=== PATIENT | female | born 1975 | race Caucasian/White ===

== ENCOUNTER 2019-02-16 10:45 | Day surgery (SDC) | payer OTHER, SELFPAY ==
[2019-02-16] VITALS (7 sets, daily range): BP systolic 96–117; BP diastolic 57–76; PULSE 51–75; RESP 14–16; TEMP 36.1–36.6; O2SAT 98–100; BMI 25.0
[2019-02-16] MEDS: Lactated Ringers 1,000 ML 40 ML IV ×2 (07:00→11:47)
[2019-02-16] MEDS: dexAMETHasone 10 MG/ML Vial 8 MG IV (07:00)
[2019-02-16] MEDS: Scopolamine 1mg/72hr Patch 1 PATCH TRANSDERM. (07:00)
[2019-02-16 11:14] LABS: Hematocrit 42.1 % (37-47); Hemoglobin 13.8 g/dL (12.0-15.0); Mean Corp Hgb Conc 32.8 g/dL (32-36); Mean Corpuscular Hgb 31.2 pg (27.0-32.0); Mean Platelet Vol. 8.9 fl (6.2-12.0); Platelet Count 266 K/mm3 (150-450); RBC Distribution Width CV 12.6 % (11.6-14.6); RBC Distribution Width SD 43.5 fl (35.1-43.9); Red Blood Count 4.43 M/mm3 (4.2-5.4); White Blood Count 4.7 K/mm3 (4.4-11.0)
[2019-02-16] MEDS: Celecoxib 200 MG Capsule 400 MG PO (11:30)
[2019-02-16] MEDS: Gabapentin 600 MG Tablet PO (11:30)
[2019-02-16] MEDS: Enoxaparin 40 MG/0.4 ML Syringe SC (11:31)
[2019-02-16] MEDS: Acetaminophen 500 MG Tablet 1000 MG PO ×2 (11:31→17:56)
[2019-02-16] MEDS: Phenazopyridine 95 MG Tablet 190 MG PO (11:31)
[2019-02-16 11:34] LABS: Internal QC Validated? YES +Cl - CLEAR BKGD; Pregnancy, Urine Negative Negative
[2019-02-16] MEDS: Magnesium Sulfate 4gm/100mL 4 GM/100 ML IV.SOLN. IV (11:48)
--- NOTE | 2019-02-16 12:15 | HYST_PTH ---
PATIENT: ROSHNI GUEVARA [place] [facility] [id number] AGE/SX: 43/F ROOM: RE02/16/[address]: Dr. Mimi Cho MD : 1975 BED: DIS: 02/16/2019 SPEC #: [id number] RECD: 02/16/19 16:20 STATUS: ALVIN GHAZAL #: [id number] BERT: 02/16/19 12:[address]: Mimi Cho DEPT: SURGICAL PATHOLOGY RECD BY: Deven Villanueva ENTERED: 02/17/19 09:40 SP TYPE: HYSTERECT OTHR DR: Dr. Clarissa Bledsoe MD Tissues: Uterus, NOS Procedures: Surgery Specimen Level V HEADER OPERATION: ERAS, hysterectomy, TLH, bilateral salpingectomy PRE-OP DIAGNOSIS: Post endometrial ablation pain, adenomyosis, uterine fibroid TISSUE SUBMITTED: Uterus, bilateral fallopian tubes MICROSCOPIC DIAGNOSIS Uterus, hysterectomy: Cervix - Nabothian cyst and mild chronic inflammation. Endometrium - transitional endometrium with focal stromal breakdown. Myometrium - focal adenomyosis. Right fallopian tube - hydrosalpinx. Left fallopian tube - hemosalpinx and endometriosis. AM:sofi 02/20/19 MICROSCOPIC DESCRIPTION Slides are reviewed. GROSS DESCRIPTION Received in fixative is one container labeled with the patient's name and designated uterus. The specimen consists of a uterus with attached cervix, attached right fallopian tube and fragments of detached fallopian tube. The uterus with the cervix measures 9 x 6 x 5.5 cm and weighs 92 gm. The ectocervix is grossly unremarkable and oval in contour. The endocervical canal measures 3 cm in length and is grossly unremarkable. The elongated endometrial cavity measures 3 cm in length x 1.5 cm in average diameter. The myometrium measures 2 cm in average thickness and is free of mass lesions. The right fallopian tube measures 6 cm in length and 1 cm in average diameter and is grossly consistent with hydrosalpinx. A distinct fimbriated end is not attached. Present free in the container are fragments of what appear to be left fallopian tube ranging in size from 1.5 cm to 5 cm. Rotary Screen Printing Machine Operator sections are submitted in 8 cassettes as follows: 1 - anterior cervix, 2 - posterior cervix, 3 & 4 - anterior uterine wall, 5 & 6 - posterior uterine wall, 7 - right fallopian tube, 8 - fragments of fallopian tubes free in container./ AM:sofi 02/17/19 TC: 5 CPT: 00466
[2019-02-16 12:41] LABS: Bedside Glucose 61 mg/dL (70-110)
--- NOTE | 2019-02-16 12:57 | PCM.HP.BLA ---
History and Physical Date of Admission: 02/16/19 Pre-Op History and Physical ? HPI: The patient is a 43 year old female presenting for pre-operative visit. She is scheduled for?TLH, bilateral salpingectomy, for?pain, postablation syndrome, fibroid and adenomyosis on?02/16/19. ??Procedure discussed along with risks, benefits and complications. ?Other alternatives discussed for management. Consent form signed??Yes.? PAST MEDICAL HISTORY PAST MEDICAL HISTORY Diagnosis Date ? NEGATIVE MEDICAL HISTORY ? ? ? PAST SURGICAL HISTORY PAST SURGICAL HISTORY Procedure Laterality Date ? SECTION HX ? 2007,2004 ? x2 ? NOVASURE ? 2014 ? TUBAL LIGATION HX ? 2007 ? ? CURRENT MEDICATIONS Current Outpatient Medications Medication Sig Dispense Refill ? ibuprofen (MOTRIN) 200 mg tablet Take 200 mg by mouth every 6 hours as needed. ? ? ? No current facility-administered medications for this visit.? ? ALLERGIES:?Latex; Penicillin; Sulfa (Sulfonamide Antibiotics) ? PERSONAL HISTORY:? SOCIAL HISTORY Social History ? Tobacco Use ? Smoking status: Never Smoker ? Smokeless tobacco: Never Used Substance Use Topics ? Alcohol use: Not Currently ? Drug use: No ? FAMILY HISTORY:? FAMILY HISTORY FAMILY HISTORY Problem Relation Age of Onset ? Hypertension Mother ? ? Lipids Mother ? ? Glaucoma Mother ? ? Stroke Father ?Did well after TPA; on oral anticoagulant ? other (a fib) Father ? ? other (PSVT) Father ? ? Kidney Disease Sister ?had to have nephrectomy ? REVIEW OF SYMPTOMS: The risks/benefits/alternatives and personal involved for the planned?TLH/bilateral salpingectomy?were reviewed with the patient. Her questions were answered to her satisfaction and she desires to proceed. ?Consent was signed. ?I reviewed with her postop instructions and expectations. ? ? PHYSICAL EXAMINATION: ? VITALS:?There were no vitals taken for this visit. ? GENERAL:??The patient is well nourished, well hydrated in no acute distress. ?, The patient is oriented to time, place, and person. NECK:?Supple. No lynphadenopathy, normal thyroid, no thyromegaly. LUNGS:?Clear to auscultation bilaterally. no wheezes, rhonchi or rales HEART:?Regular rate and rhythm, Normal heart sounds and No murmurs or gallops GENITALIA:?Normal external genitalia, Urethral meatus normal, Bladder nontender, normal vagina and normal vaginal tone, normal cervix, normal uterus, size and consistency, normal adnexa without masses or tenderness and perineum WNL ? ? ? 11/24/18 Overall impression: Uterus normal size and contour. ?Endometrial thickness 11 mm. ?There appears to be a well-circumscribed hyperechoic area in the endometrium which could represent a small submucosal fibroid or polyp. There is a small subserosal fibroid measuring 1.9 cm reason greatest dimension Left ovary with a small 1.3 cm simple appearing cyst Right ovary is normal No free fluid in the cul-de-sac. Recommendations / therapy: Correlate findings clinically. ?History of an ablation could make SIS difficult if evaluation of the endometrium is warranted. Follow- up: Follow-up as clinically indicated. Indication: Pelvic pain. History: Gynecological History: Past gynecological operations: Ablation 2013. Gynecological Ultrasonography: Uterus: anteverted. Size: Longitudinal 90 mm. Anterio- posterior 52 mm. Transverse 61 mm. Volume: 149.5 ml. Fibroids: Fibroid 1: Size: 19 mm x 10 mm x 16 mm. Type: anterior. Position: right fundus. Endometrium: endometrial cavity could not be seen clearly. Endometrium thickness total: 11.0 mm. Right Ovary: normal. Partially visible. Outline: smooth. Morphology: normal morphology. Right Ovary size: 11 mm x 7 mm x 7 mm. Volume: 0.3 ml. Left Ovary: normal. Visible. Outline: smooth. Morphology: normal morphology. Left Ovary size: 29 mm x 20 mm x 16 mm. Volume: 4.9 ml. Cysts Left Ovary: Cyst 1: Mean value: 11 mm. D1: 13 mm. D2: 9 mm. D3: 10 mm. Volume: 1 ml. Simple cyst. Cul de Sac / Pouch of Gunner: no free fluid visible. ? PAP 11/08/18 neg w/ neg HRHPV ? ? IMPRESSION:?Post endometrial ablation pain, adenomyosis, uterine fibroid ? PLAN:???The risks/benefits/alternatives and personal involved for the planned?TLH, bilateral salpingectomy?were reviewed with the patient. Her questions were answered to her satisfaction and she desires to proceed. ?Consent was signed. ?I reviewed with her postop instructions and expectations. ? ? I have reviewed and updated past medical and surgical history, medications and allergies?
[2019-02-16] MEDS: Cefazolin 2 GM in 0.9% Normal Saline 100 ML IV (13:11)
[2019-02-16] MEDS: Lubricating Jelly 60 GM Tube 30 GM TOPICAL (14:20)
[2019-02-16] MEDS: Bupivacaine Mpf 0.5% 30 ML VIAL (15:20)
--- NOTE | 2019-02-16 16:23 | PCM.DC.AHY ---
Discharge Diet: No Restrictions Discharge Activity: Return to Normal Activity, May Not Drive - while taking narcotic pain medications., May Shower May shower in (days): 1 May resume sexual activity in: 6-8 weeks, 2 weeks Call your doctor if your incision/area has: Continuous Slow Oozing, Sudden Increased Bleeding, Increased Pain/ Swelling, Increased Redness, Foul Smelling Discharge Call your doctor if you observe: Fever of 101 or Higher, Inability to urinate, Inability to have a bowel movement, Using more than one pad per hour Cleanse incision/area with: Soap & Water, - - Your incisions have skin glue, it can get wet. You may wash it with soap and water. Leave it on for 10 to 14 days Allergies/Adverse Reactions: Allergies latex Allergy (Verified 02/16/19 11:16) Rash Penicillins [PCN] Allergy (Verified 02/16/19 11:16) Nausea/Vom/Diarrhea Sulfa (Sulfonamide Antibiotics) Allergy (Verified 02/16/19 11:16) Hives Medications to take at Discharge Doxylamine Succinate [Unisom] 25 mg PO QHS 02/01/19 Ibuprofen [Motrin] 600 mg PO Q6H PRN #60 tab 02/16/19 Oxycodone [Oxyir] 5 mg PO Q6H PRN PRN 7 Days #22 tab 02/16/19 The following prescriptions were given: Ibuprofen [Motrin] 600 mg PO Q6H PRN #60 tab PRN Reason: Pain Transmission Status: Received by ADALID PAUL1954 [facility] Oxycodone [Oxyir] 5 mg PO Q6H PRN PRN 7 Days #22 tab PRN Reason: severe pain Transmission Status: Received by ADALID PAUL[address] [facility] Primary Care Physician: Clarissa Bledsoe MD [Primary Care Provider] - Test Results: Test results from this visit will be discussed in further detail at your follow-up appointment, if applicable. Please Follow Up With: Mimi Cho MD - [phone] When: 1-2 and 6 weeks or as needed
--- NOTE | 2019-02-16 16:25 | OP.PCM_ITS ---
Report of Operation Date of Procedure: 02/16/19 Pre-Operative Diagnosis: Pelvic pain, status post endometrial ablation, uterine fibroid, adenomyosis Post-Operative Diagnosis: Same plus bilateral hydrosalpinx Surgery/Procedure Performed:: Total laparoscopic hysterectomy with bilateral salpingectomy and cystoscopy Description of Surgical Findings:: Adhesions of the bladder and lower uterine segment to the anterior abdominal wall, bilateral hydrosalpinx, boggy anteverted uterus. Otherwise unremarkable peritoneal cavity. Normal bladder, normal cervix and vagina. licensed embalmer supervisor: Joaquin Armendariz licensed embalmer supervisor: Ms Manuela Type of Anesthesia:: General Anesthesiologist: Felisa Hearn Special Medications: Lasix 5 mg IV given Specimen's removed: Cervix, uterus and bilateral fallopian tubes Drains: None Estimated Blood Loss (mL): 100 Fluids Replaced: 1000 cc of LR Description of Procedure: The patient was taken to the operating room where she was prepped and draped in the dorsal lithotomy position. Her arms were tucked to the side and padded and her legs were placed in the yellowfin stirrups. Care was taken to ensure that she was placed in a neurologically safe and neutral position. A weighted speculum was placed in the vagina and the anterior lip of the cervix was grasped with a single-tooth tenaculum. The cervix sounded to 8 centimeters. 2-0 Vicryl sutures were secured to the cervix at 3 and 9:00. The Ag 3 cm uterine manipulator was placed into the cervix and the balloon inflated. The stay sutures were placed through the cup and secured down to the cervix. Once the manipulator was secured to the cervix the Mann catheter was placed to straight drain. Attention was turned to the abdominal portion of the case. Before skin incisions were made they were infiltrated with 0.5% Marcaine solution for local anesthetic. A 5 mm intraumbilical incision was made and while tenting the anterior abdominal wall up with towel clamps a 5 mm blade less trocar and sleeve were advanced directly into the peritoneal cavity. Peritoneal placement was confirmed with the laparoscope the pneumoperitoneum was created, and the underlying abdominal contents were intact. The patient was placed in Trendelenburg and the above findings were noted. Right and left lateral 5 mm trochars were placed under direct visualization without difficulty. The dense adhesions of the anterior abdominal wall were taken down with the LigaSure device. The adhesions of the anterior abdominal wall to the uterus were then taken down with the LigaSure device. The antimesenteric portion of the tube was clamped sealed and transected serially on both sides with the LigaSure device. The round ligaments were clamped sealed and transected and a window was made in the peritoneum. The utero-ovarian ligaments were then clamped sealed and transected with the LigaSure device and the pedicles were hemostatic The bladder flap was dissected down with the LigaSure device and blunt dissection and the uterine arteries were then skeletonized. The uterine arteries were clamped sealed and transected on both sides with the LigaSure device. Then along the cardinal ligament uterine arteries adjacent to the cervix were clamped sealed and transected with the LigaSure device to move them away from the vaginal cuff angle. At this point the pedicles were all examined and found to be hemostatic. The bladder flap was rechecked and found to be adequately down. The monopolar tip of the LigaSure device was then used to enter the anterior vagina. The vaginal manipulator cup was noted in the vaginal colpotomy incision was made circumferentially around the cup. When the 3 and 9:00 positions of the cervicovaginal junction were reached these were clamped sealed and transected with the LigaSure device to secure any small remaining vessels. At this point the pedicles were hemostatic from above and attention was turned to the vaginal portion of the case again. The uterus was brought intact out through the vaginal colpotomy incision along with the tubes There is some bleeding from the left vaginal cuff angle and this was grasped with an Allis clamp. Vaginal angle sutures were placed on both sides with 0 Vicryl sutures and care was taken to ensure that the uterosacral ligament was secured into this stitch. This to your vaginal cuff was oversewn with 2-0 Vicryl suture in a running locked fashion. Some bleeding from the left lower pedicle on the left side and Mary clamp was placed on it and a free tie placed around it. Hemostasis was then noted. The remainder the vagina was then closed horizontally with interrupted 0 Vicryl sutures. The cuff was hemostatic vaginally. The Mann catheter was removed and a cystoscopy was performed. The bladder appeared normal and was intact. Both ureteral orifices were noted and both ureteral jets were seen. The cystoscope was removed and the Mann catheter was placed back to straight drain. A sponge stick was placed in the vagina to help place traction against the vaginal cuff and the pneumoperitoneum was re-created. The suction inside sales assistant was used to remove any blood and clots from the peritoneal cavity. The pedicles were reexamined and found to be hemostatic. The vaginal cuff was hemostatic. Some Farshad was placed over the cuff and the pedicles and no active bleeding was noted through the Farshad. The right and left lateral ports were taken out and the sites were hemostatic. The pneumoperitoneum was released and even under low pressure there was no bleeding of any of the pedicles are vaginal cuff. The umbilical port was removed. The umbilical skin incisions were closed with Monocryl suture and skin glue by the SPRING MANUFACTURING SET UP TECHNICIAN present in the operating suite. The vaginal instruments were removed by me and a vaginal sweep was completed by me. The surgery was performed by me with assistance other than the portions dictated as above. There were no qualified residents available for this procedure. All sponge lap and needle counts were correct and the patient was transferred to the recovery room in stable condition. Grafts/Implants Used: None - Complications None - Admit VTE Documentation VTE Present on Admission: No VTE Mechan Device Prophylaxis: SCD's VTE Pharm Prophylaxis ordered?: No Reason prophylaxis not ordered:: Procedure Not Indicated
[2019-02-16] MEDS: Ketorolac 30 MG/ML Syringe IV (17:56)
[2019-02-16 18:35] LABS: Hematocrit 39.2 % (37-47); Hemoglobin 12.7 g/dL (12.0-15.0); Mean Corp Hgb Conc 32.4 g/dL (32-36); Mean Corpuscular Hgb 30.9 pg (27.0-32.0); Mean Corpuscular Volume 95.4 fL (81-99); Platelet Count 223 K/mm3 (150-450); RBC Distribution Width CV 12.4 % (11.6-14.6); RBC Distribution Width SD 43.2 fl (35.1-43.9); Red Blood Count 4.11 M/mm3 (4.2-5.4); White Blood Count 10.4 K/mm3 (4.4-11.0)
== END 2019-02-16 19:50 | disposition home or self-care (01) ==
LOC: SDC 10:46 → AC 10:48 → MS3 12:59
PROVIDERS: Family Provider Internal Medicine; PCP Internal Medicine; Referring Provider Obstetrics & Gynecology; Visit Provider Obstetrics & Gynecology
PROC: 0UT94ZZ Resection of Uterus, Percutaneous Endoscopic Approach (ICD-10-PCS; principal; 2019-02-16 11:55)
DX: N88.8 Other specified noninflammatory disorders of cervix uteri (principal); N72 Inflammatory disease of cervix uteri; N80.2 Endometriosis of fallopian tube; N70.11 Chronic salpingitis; D25.9 Leiomyoma of uterus, unspecified; N80.0 Endometriosis of uterus; Z87.891 Personal history of nicotine dependence
CPT/HCPCS: 52000; 58552; 36415; 81025; 82962; 85027; 86850; 86900; 86901; 88307; J7120; J2405

== ENCOUNTER → 2021-09-01 | Outpatient (CLI) | payer OTHER, SELFPAY ==
--- NOTE | 2021-09-01 13:30 | US_ITS ---
STUDY: ULTRASOUND BREAST - RIGHT REASON FOR EXAM: Female, 46 years old. Palpable mass TECHNIQUE: Axial and longitudinal images of the RIGHT breast were performed with a high resolution ultrasound transducer. # OF IMAGES: [id number] COMPARISON: Diagnostic mammogram earlier today FINDINGS: RIGHT Breast: Heterogeneous background echotexture. At 11 o''clock, 6 cm from the nipple, ultrasound confirms a 4.2 cm oval parallel circumscribed anechoic mass with posterior enhancement consistent with a cyst.: At 6 o''clock, 2 cm from the nipple, ultrasound confirms a 3.0 cm oval parallel circumscribed anechoic mass with posterior enhancement consistent with a cyst. US/Breast Limited Unilateral IMPRESSION: Ultrasound confirms 2 large cysts corresponding to the patient''s palpable abnormalities. ASSESSMENT CATEGORY: BIRADS Category 2: Benign. A letter regarding these results will be sent to the patient by the facility within 30 days. Electronically Signed: Heri Mcarthur MD at 14:50 EDT ,
--- NOTE | 2021-09-01 13:30 | BI_ITS ---
MAMMOGRAPHY - UNILATERAL DIAGNOSTIC: RIGHT BREAST REASON FOR EXAM: Female, 46 years old. LUMP PERTINENT HISTORY: Non-contributory. TECHNIQUE: Digital examination. Mediolateral oblique (MLO) and craniocaudad (CC) views of the breast were obtained. CAD: CAD was performed on this study. COMPARISON: 01/06/2021 FINDINGS: Breast Composition: The breasts are heterogeneously dense, which may obscure small masses. 3.5 cm round obscured equal density mass in the upper outer quadrant of the right breast corresponding to one of the palpable abnormalities and correlation with ultrasound is recommended. 3 cm oval obscured density mass in the lower inner quadrant of the right breast corresponding to a palpable abnormality and correlation with ultrasound is recommended. No other significant abnormalities are identified. BI/DIAG MAMM W/CAD, UNILAT IMPRESSION: Further ultrasonographic evaluation recommended, as described above. ASSESSMENT CATEGORY: BIRADS Category 0: Incomplete. Need additional imaging evaluation. A letter regarding these results will be sent to the patient by the facility within 30 days. FOLLOW-UP RECOMMENDATION: Ultrasound recommended. (I) Approximately 10% of breast cancers are not detected by mammography. A normal mammogram should not delay biopsy of a clinically suspicious abnormality. Electronically Signed: Heri Mcarthur MD at 14:06 EDT ,
== END | disposition home or self-care (01) ==
PROVIDERS: PCP Internal Medicine; Visit Provider Nurse Practitioner Family
DX: N63.14 Unspecified lump in the right breast, lower inner quadrant (principal); N63.11 Unspecified lump in the right breast, upper outer quadrant
CPT/HCPCS: 76642; 77061; 77065; G0279